=== PATIENT | female | born 1965 | race Two or more races ===

== ENCOUNTER 2023-04-04 06:10 | Day surgery (SDC) | payer OTHER ==
[~2023-04-04] VITALS: Ht 172.7 cm; Wt 86.2 kg
[~2023-04-04 06:10] MED LIST: BREO ELLIPTA 21 EACH IH; OMEPRAZOLE40 MG PO; PROAIR RESPICL90 MCG IH
== END 2023-04-04 15:35 | disposition home or self-care (01) ==
LOC: CIR.AMB 06:10
PROVIDERS: ATTEND Surgery
DX: D05.12 Intraductal carcinoma in situ of left breast (principal); R59.0 Localized enlarged lymph nodes; I10 Essential (primary) hypertension; Z20.822 Contact with and (suspected) exposure to COVID-19; N39.0 Urinary tract infection, site not specified; E11.9 Type 2 diabetes mellitus without complications; E04.1 Nontoxic single thyroid nodule; E78.2 Mixed hyperlipidemia
CPT/HCPCS: 19301; 38525; 38792; 19281; A9541; L8699